=== PATIENT | female | born 1985 | race African-American/Black ===

== ENCOUNTER 2020-10-31 14:37 | Outpatient (CLI) | payer MEDICAID ==
--- NOTE | 2020-10-31 15:52 | ULT ---
TRANSABDOMINAL TRANSVAGINAL PELVIC ULTRASOUND DATE:: 10/31/2020 2:40 PM CLINICAL HISTORY: Pelvic pain. COMPARISON: None. TECHNIQUE: Grayscale, color Doppler and spectral Doppler images were obtained of the pelvis utilizing a transabdominal and transvaginal approach FINDINGS: UTERUS: Size: 9.1 x 4.6 x 5.1 cm Mass: None Cervix: Within normal limits Endometrial Thickness: 7.5 mm. RIGHT OVARY: 2.8 x 1.7 cm. Mass: There are multiple small follicles within the right ovary.. The largest measures 1.4 cm Flow: Normal LEFT OVARY: 2.7 x 2.4 cm. Mass: Multiple small follicles are seen within the left ovary. The largest measures 1.8 cm.. Flow: Normal CUL-DE-SAC: No free fluid IMPRESSION: No acute sonographic abnormality demonstrated.
== END 2020-10-31 14:38 | disposition home or self-care (01) ==
LOC: BICULT 14:37
PROVIDERS: ATTEND Nurse Practitioner
DX: R10.2 Pelvic and perineal pain (principal)
CPT/HCPCS: 76856